=== PATIENT | male | born 1990 | race Caucasian/White ===

== ENCOUNTER 2020-05-23 15:11 | Inpatient (IN) | payer OTHER ==
[~2020-05-23] VITALS: Ht 198.1 cm; Wt 168.3 kg
[~2020-05-23 15:11] MED LIST: ABILIFY10 MG PO; FLEXERIL PO; NORCO 5-325 TA1 EACH PO; Penicillin; TRILEPTAL150 MG PO; ULTRAM 50MG TAB50 MG PO; ZANTAC150 M2 PO
[2020-05-23 15:19] VITALS: BP 161/118
[2020-05-23 15:58] LABS: ABSOLUTE BASOPHILS 0.1 thou/uL (0.0-0.2); ABSOLUTE EOSINOPHILS 0.2 thou/uL (0.0-0.7); ABSOLUTE LYMPHOCYTES 3.8 thou/uL (0.8-5.3); ABSOLUTE MONOCYTES 1.5 thou/uL (0.0-1.2); ABSOLUTE NEUTROPHILS 12.5 thou/uL (1.6-8.1); BASOPHILS 0.6 %; EOSINOPHILS 0.9 %; HEMATOCRIT 45.6 % (42.0-52.0); HEMOGLOBIN 15.1 gm/dL (14.0-18.0); MCH 30.6 pg (26.0-34.0); MCV 92.5 fL (80.0-100.0); MONOCYTES 8.3 %; MPV 8.3 fl. (7.2-11.1); NUCLEATED RBCS 0 /100WBC; PLATELET COUNT* 323 thou/uL (150-400); POLYS 69.2 %; RBC 4.93 mil/uL (4.50-6.00); RDW-CV 14.9 % (10.5-14.5)
[2020-05-23 16:07] LABS: CALCIUM 8.6 mg/dL (8.5-10.1); CREATININE 0.9 mg/dL (0.6-1.3); POTASSIUM 3.9 mmol/L (3.5-5.1)
[2020-05-23 16:12] LABS: ALBUMIN 3.1 g/dL (3.4-5.0); TOTAL BILIRUBIN 0.6 mg/dL (<0.1-1.0); TOTAL PROTEIN 7.6 g/dL (6.4-8.2)
[2020-05-23 17:39] LABS: APTT 28.3 Seconds (25.0-31.3); PROTIME 10.6 Seconds (9.20-11.50)
[2020-05-23 21:16] VITALS: BP 132/65
[2020-05-23 22:09] VITALS: BP 136/89
[2020-05-23 23:00] VITALS: BP 137/84
[2020-05-23 23:13] LABS: URINE BILIRUBIN NEGATIVE (Negative); URINE BLOOD NEGATIVE (Negative); URINE CLARITY CLEAR; URINE COLOR YELLOW; URINE GLUCOSE-RANDOM NEGATIVE (Negative); URINE KETONES NEGATIVE (Negative); URINE LEUKOCYTES-REFLEX NEGATIVE (Negative); URINE NITRITE-REFLEX NEGATIVE (Negative); URINE PROTEIN NEGATIVE (Negative); URINE SPECIFIC GRAVITY >= 1.030 (1.005-1.030)
[2020-05-24 04:00] VITALS: BP 126/73
[2020-05-24 08:00] VITALS: BP 136/78
[2020-05-24 12:00] VITALS: BP 136/85
[2020-05-24 12:43] VITALS: BP 136/78
[2020-05-24 20:00] VITALS: BP 131/68
[2020-05-25] VITALS: BP 1501/94
[2020-05-25 04:00] VITALS: BP 143/81
[2020-05-25 05:03] LABS: HEMATOCRIT 41.7 % (42.0-52.0); HEMOGLOBIN 13.7 gm/dL (14.0-18.0); MCH 30.5 pg (26.0-34.0); MCHC 32.9 g/dL (28.0-37.0); MCV 92.7 fL (80.0-100.0); MPV 9.2 fl. (7.2-11.1); NUCLEATED RBCS 0 /100WBC; PLATELET COUNT* 293 thou/uL (150-400); RDW-CV 14.9 % (10.5-14.5); WBC 20.2 thou/uL (4.0-11.0)
[2020-05-25 05:17] LABS: CALCIUM 8.4 mg/dL (8.5-10.1); CREATININE 0.7 mg/dL (0.6-1.3); POTASSIUM 3.7 mmol/L (3.5-5.1)
[2020-05-25 08:47] VITALS: BP 145/92
[2020-05-25 09:06] LABS: ABSOLUTE EOSINOPHILS 0.4 thou/uL (0.0-0.7); ABSOLUTE LYMPHOCYTES 3.2 thou/uL (0.8-5.3); ABSOLUTE MONOCYTES 1.2 thou/uL (0.0-1.2); ABSOLUTE NEUTROPHILS 15.4 thou/uL (1.6-8.1); PLATELET ESTIMATE ADEQUATE
[2020-05-25 09:07] LABS: HYPOCHROMASIA Occasional
[2020-05-25 12:00] VITALS: BP 135/84
[2020-05-25] MEDS ORDERED: ELIQUIS5 MG PO (13:40)
[2020-05-25 14:10] VITALS: BP 135/84
[2020-05-25 14:43] VITALS: BP 135/84
== END 2020-05-25 14:40 | disposition home or self-care (01) | DRG 253 ==
LOC: M.ERS 15:11 → M.TBA-ER 17:16 → M.2W 22:45
PROVIDERS: Emergency Medicine Emergency Medical Services; Physician Assistant; Radiology Diagnostic Radiology; ADMIT Internal Medicine; ATTEND Internal Medicine
DX: I82.622 Acute embolism and thrombosis of deep veins of left upper extremity (principal); L03.90 Cellulitis, unspecified; F90.9 Attention-deficit hyperactivity disorder, unspecified type; F31.9 Bipolar disorder, unspecified; D72.829 Elevated white blood cell count, unspecified; F91.3 Oppositional defiant disorder; F17.200 Nicotine dependence, unspecified, uncomplicated; G54.0 Brachial plexus disorders; Z20.822 Contact with and (suspected) exposure to COVID-19; Z90.49 Acquired absence of other specified parts of digestive tract; Z79.899 Other long term (current) drug therapy; Z23 Encounter for immunization

== ENCOUNTER 2020-05-28 10:19 | Inpatient (IN) | payer OTHER ==
[~2020-05-28] VITALS: Ht 198.1 cm; Wt 76.8 kg
[2020-05-28] VITALS (8 sets, daily range): BP systolic 118–170; BP diastolic 71–103
[~2020-05-28 10:19] MED LIST changes: +ELIQUIS5 MG PO
[2020-05-28 10:55] LABS: ABSOLUTE BASOPHILS 0.1 thou/uL (0.0-0.2); ABSOLUTE EOSINOPHILS 0.4 thou/uL (0.0-0.7); ABSOLUTE MONOCYTES 1.3 thou/uL (0.0-1.2); ABSOLUTE NEUTROPHILS 11.8 thou/uL (1.6-8.1); BASOPHILS 0.6 %; EOSINOPHILS 2.6 %; HEMATOCRIT 45.5 % (42.0-52.0); HEMOGLOBIN 14.9 gm/dL (14.0-18.0); MCH 30.4 pg (26.0-34.0); MCHC 32.9 g/dL (28.0-37.0); MCV 92.6 fL (80.0-100.0); MONOCYTES 7.7 %; MPV 8.5 fl. (7.2-11.1); NUCLEATED RBCS 0 /100WBC; PLATELET COUNT* 385 thou/uL (150-400); POLYS 71.1 %; RBC 4.91 mil/uL (4.50-6.00); RDW-CV 14.6 % (10.5-14.5); WBC 16.5 thou/uL (4.0-11.0)
[2020-05-28 10:59] LABS: CALCIUM 8.9 mg/dL (8.5-10.1); CREATININE 0.8 mg/dL (0.6-1.3); POTASSIUM 3.7 mmol/L (3.5-5.1)
[2020-05-28 11:04] LABS: TOTAL BILIRUBIN 0.5 mg/dL (<0.1-1.0); TOTAL PROTEIN 8.1 g/dL (6.4-8.2)
[2020-05-28 11:08] LABS: PROTIME 10.5 Seconds (9.20-11.50)
[2020-05-28 19:36] LABS: HEMATOCRIT 44.7 % (42.0-52.0); HEMOGLOBIN 14.5 gm/dL (14.0-18.0)
[2020-05-28 19:46] LABS: APTT 28.3 Seconds (25.0-31.3); PROTIME 10.7 Seconds (9.20-11.50)
[2020-05-29] VITALS (20 sets, daily range): BP systolic 129–172; BP diastolic 72–105
[2020-05-29 04:41] LABS: ABSOLUTE BASOPHILS 0.2 thou/uL (0.0-0.2); ABSOLUTE EOSINOPHILS 0.6 thou/uL (0.0-0.7); ABSOLUTE LYMPHOCYTES 4.8 thou/uL (0.8-5.3); ABSOLUTE MONOCYTES 1.6 thou/uL (0.0-1.2); BASOPHILS 0.9 %; EOSINOPHILS 3.1 %; HEMATOCRIT 42.1 % (42.0-52.0); HEMOGLOBIN 13.7 gm/dL (14.0-18.0); LYMPHOCYTES 26.5 %; MCH 30.3 pg (26.0-34.0); MCHC 32.6 g/dL (28.0-37.0); MCV 93.1 fL (80.0-100.0); MONOCYTES 8.7 %; MPV 8.4 fl. (7.2-11.1); NUCLEATED RBCS 0 /100WBC; PLATELET COUNT* 338 thou/uL (150-400); POLYS 60.8 %; RBC 4.53 mil/uL (4.50-6.00); RDW-CV 14.7 % (10.5-14.5); WBC 18.1 thou/uL (4.0-11.0)
[2020-05-29 04:50] LABS: CALCIUM 8.5 mg/dL (8.5-10.1); CREATININE 0.7 mg/dL (0.6-1.3)
[2020-05-29 19:11] LABS: HEMATOCRIT 45.5 % (42.0-52.0); HEMOGLOBIN 14.8 gm/dL (14.0-18.0)
[2020-05-29 19:26] LABS: APTT 34.3 Seconds (25.0-31.3); PROTIME 11.1 Seconds (9.20-11.50)
[2020-05-30] VITALS (12 sets, daily range): BP systolic 120–143; BP diastolic 58–81
[2020-05-30 03:29] LABS: HEMOGLOBIN 14.1 gm/dL (14.0-18.0); MCH 30.5 pg (26.0-34.0); MCHC 32.8 g/dL (28.0-37.0); RBC 4.62 mil/uL (4.50-6.00); RDW-CV 14.4 % (10.5-14.5); WBC 18.7 thou/uL (4.0-11.0)
[2020-05-30 03:55] LABS: ALBUMIN 2.6 g/dL (3.4-5.0); CALCIUM 8.6 mg/dL (8.5-10.1); CREATININE 0.7 mg/dL (0.6-1.3); MAGNESIUM 2.1 mg/dL (1.8-2.4); POTASSIUM 4.1 mmol/L (3.5-5.1); TOTAL BILIRUBIN 1.1 mg/dL (<0.1-1.0); TOTAL PROTEIN 7.2 g/dL (6.4-8.2)
[2020-05-30 19:33] LABS: HEMATOCRIT 43.2 % (42.0-52.0); HEMOGLOBIN 14.1 gm/dL (14.0-18.0)
[2020-05-30 19:47] LABS: APTT 31.9 Seconds (25.0-31.3); INR 1.1; PROTIME 11.2 Seconds (9.20-11.50)
[2020-05-31] VITALS: BP 133/80
[2020-05-31 04:00] VITALS: BP 131/68
[2020-05-31 04:37] LABS: HEMATOCRIT 42.3 % (42.0-52.0); HEMOGLOBIN 13.5 gm/dL (14.0-18.0)
[2020-05-31 05:00] LABS: APTT 30.8 Seconds (25.0-31.3); INR 1.1; PROTIME 11.4 Seconds (9.20-11.50)
[2020-05-31] MEDS ORDERED: HYDROCODON-ACE1 EAC7 PO (07:43)
[2020-05-31] MEDS ORDERED: LITE COAT ASPI325 MG PO (07:44)
[2020-05-31 08:00] VITALS: BP 154/60
[2020-05-31 12:52] VITALS: BP 154/60
--- NOTE | 2020-05-31 16:36 | CON ---
[address] [address] CONSULTATION Name: SIDRA BERNABE Rainer Room: [address] IN M.R.#: [id number] Admission: 05/28/20 Attend Phys: Jone Mejía MD Discharge: 05/31/20 Date of : 89 Report #: [id number] THIS REPORT FOR: cc: FAM - No family physician/PCP FAM - No family physician/PCP ~ Bruce Pineda MD DATE OF SERVICE: 05/29/2020 HISTORY OF PRESENT ILLNESS: We were asked to see the patient for left axillary vein thrombosis. The patient has a history of new onset left axillary vein thrombosis approximately 1 week ago. This was treated with thrombolysis in Interventional Radiology Department. The patient was started on Eliquis and discharged and had a recrudescence of this and was admitted yesterday when the initial repeat thrombolysis was performed and a final thrombolysis was done today. The patient was on IV heparin overnight with TPA running to dissolve the clot and today had left upper extremity venogram with balloon dilatation of axillary vein. The patient states that he has never had this problem before acute onset on 05/24. PAST HISTORY: Significant for ITP (idiopathic thrombocytopenic purpura) and the patient had a splenectomy in 2009. The patient is not taking any medication currently. ALLERGIES: The patient has a recorded allergy to RHO(D) IMMUNE GLOBULIN dating from 05/04/2009. MEDICATIONS: The patient was on Eliquis at home, apixaban 5 mg. The patient from the chart as a history of bipolar disorder, but the patient denied taking any medication for any problems when I spoke with him. 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 Social history is significant for tobacco use. The patient denies other drug use. He does use alcohol. REVIEW OF SYSTEMS: I agree with the review of systems as dictated by Dr. Mejía. In addition, I queried the patient about unusual activity and there does not seem to be any. PHYSICAL EXAMINATION: GENERAL: The patient is in bed, somewhat sleepy after [place] [address] CONSULTATION Name: SIDRA BERNABE Rainer Room: [address] IN [facility]#: [id number] Admission: 05/28/20 Attend Phys: Jone Mejía MD Discharge: 05/31/20 Date of : 89 Report #: [id number] VITAL SIGNS: Satisfactory. Blood pressure 147/80, O2 sat 92 on room air, pulse rate 73. HEENT: Normocephalic. Pupils are round and equal. No conjunctival edema, no scleral icterus, no arcus senilis. NECK: No mass, no bruit. CHEST: Clear to auscultation. HEART: Rhythm regular. ABDOMEN: The patient has somewhat overweight with mild centripetal obesity. EXTREMITIES: The left arm is on a pillow. It is swollen relative to the right and somewhat discolored with reddish purplish coloration. Radial pulses are palpable in both arms, but somewhat obscured on the left due to edema. Mild venous pattern on the left upper extremity, but with the obesity, not clearly first rib collaterals. Lower extremities, no edema. NEUROLOGIC: No motor or sensory dysfunction. PSYCHIATRIC: Shows insight into problem, answers questions appropriately and is oriented x 3, but somewhat sleepy as mentioned. ASSESSMENT AND PLAN: The patient has left axillary vein thrombosis, Paget-von Schroetter syndrome. We note that initial treatment was with thrombolytic therapy and Interventional Radiology and the patient was sent home on Eliquis. I am not familiar with Eliquis being satisfactory treatment for this and I am more familiar with heparin translating over to Coumadin, but the physicians who recommended the Eliquis may have more information on that than I. In any event, this has treated problem currently and my recommendation would be intravenous heparin or subcutaneous Lovenox at a therapeutic level with transition over to Coumadin. We do note that the patient had an elevated fibrinogen level prior on 05/28 and it is not clear if this is in spite of treatment or related to an underlying hypercoagulable disorder. It would also be reasonable to have hematology when as this patient does have ITP and get their opinion. One would hope that this all could be done on an outpatient basis with the patient on satisfactory warfarin treatment (with a goal INR in the 2.5 range). Ultimately, treatment could involve surgery. There were multiple approaches for this problem with supraclavicular, infraclavicular and transaxillary approaches to the first rib and thoracic outlet. This was a small part of my practice, but I have done this sort of surgery in the past. I have advised the patient that there are people who super-specialized in this, but I am not familiar with any of them in this city and we are happy to point the patient in that direction if he wishes. [facility] [address] [place] [address] CONSULTATION Name: SIDRA BERNABE Room: [address] M.R.#: [id number] Admission: 05/28/20 Attend Phys: Jone Mejía MD Discharge: 05/31/20 Date of : 89 Report #: [id number] As mentioned, I would hope that we could translate this patient to oral anticoagulation ultimately and follow him as an outpatient. Thank you for the consult. <ELECTRONICALLY SIGNED> By: Bruce Pineda MD 05/31/20 1636 [id number] 1931Jokristina Pineda MD /nt
== END 2020-05-31 13:15 | disposition home or self-care (01) | DRG 271 ==
LOC: M.ERS 10:19 → M.TBA-ER 13:22 → M.ICU 14:55 → M.2W 05-30 11:20
PROVIDERS: Internal Medicine; Physician Assistant; Radiology Diagnostic Radiology; ADMIT Internal Medicine; ATTEND Internal Medicine
PROC: 05CA3ZZ Extirpation of Matter from Left Brachial Vein, Percutaneous Approach (ICD-10-PCS; principal; 2020-05-28)
PROC: 3E03317 Introduction of Other Thrombolytic into Peripheral Vein, Percutaneous Approach (ICD-10-PCS; principal; 2020-05-28)
PROC: 05C63ZZ Extirpation of Matter from Left Subclavian Vein, Percutaneous Approach (ICD-10-PCS; principal; 2020-05-28)
PROC: B51N1ZZ Fluoroscopy of Left Upper Extremity Veins using Low Osmolar Contrast (ICD-10-PCS; principal; 2020-05-28)
PROC: 05C83ZZ Extirpation of Matter from Left Axillary Vein, Percutaneous Approach (ICD-10-PCS; principal; 2020-05-28)
PROC: B5181ZA Fluoroscopy of Superior Vena Cava using Low Osmolar Contrast, Guidance (ICD-10-PCS; principal; 2020-05-28)
DX: I82.A12 Acute embolism and thrombosis of left axillary vein (principal); E44.1 Mild protein-calorie malnutrition; Z68.1 Body mass index [BMI] 19.9 or less, adult; F31.9 Bipolar disorder, unspecified; F90.9 Attention-deficit hyperactivity disorder, unspecified type; F91.3 Oppositional defiant disorder; I82.890 Acute embolism and thrombosis of other specified veins; G54.0 Brachial plexus disorders; F17.210 Nicotine dependence, cigarettes, uncomplicated; E66.9 Obesity, unspecified; Z20.822 Contact with and (suspected) exposure to COVID-19; Z90.81 Acquired absence of spleen; Z90.49 Acquired absence of other specified parts of digestive tract; Z79.899 Other long term (current) drug therapy; Z88.8 Allergy status to other drugs, medicaments and biological substances

== ENCOUNTER 2020-07-30 20:55 | Emergency (ER) | payer OTHER ==
[~2020-07-30] VITALS: Ht 193 cm; Wt 136.1 kg
[~2020-07-30 20:55] MED LIST changes: +HYDROCODON-ACE1 EAC7 PO; +LITE COAT ASPI325 MG PO
[2020-07-30] MEDS ORDERED: HYDROCODON-ACE1 EAC8 PO (22:20)
[2020-07-30 22:43] VITALS: BP 125/64
== END 2020-07-30 22:44 | disposition home or self-care (01) ==
LOC: M.ERS 20:55
DX: S82.432A Displaced oblique fracture of shaft of left fibula, initial encounter for closed fracture (principal); F17.210 Nicotine dependence, cigarettes, uncomplicated; Z90.49 Acquired absence of other specified parts of digestive tract; Z88.8 Allergy status to other drugs, medicaments and biological substances; X50.9XXA Other and unspecified overexertion or strenuous movements or postures, initial encounter; Y93.89 Activity, other specified; Y92.89 Other specified places as the place of occurrence of the external cause; Y99.8 Other external cause status

== ENCOUNTER 2020-12-31 07:10 | Emergency (ER) | payer OTHER ==
[~2020-12-31] VITALS: Ht 200.7 cm; Wt 170.1 kg
[~2020-12-31 07:10] MED LIST changes: +HYDROCODON-ACE1 EAC8 PO
[2020-12-31 08:19] LABS: CALCIUM 8.4 mg/dL (8.5-10.1); MAGNESIUM 1.7 mg/dL (1.8-2.4); POTASSIUM 3.6 mmol/L (3.5-5.1)
[2020-12-31] MEDS ORDERED: ZOFRAN ODT4 MG DISSOLVE (08:24)
[2020-12-31 08:32] VITALS: BP 134/72
== END 2020-12-31 08:32 | disposition home or self-care (01) ==
LOC: M.ERS 07:10
PROVIDERS: Emergency Medicine Emergency Medical Services
DX: U07.1 COVID-19 (principal); R19.7 Diarrhea, unspecified; R11.10 Vomiting, unspecified; F31.9 Bipolar disorder, unspecified; F90.9 Attention-deficit hyperactivity disorder, unspecified type; F17.210 Nicotine dependence, cigarettes, uncomplicated; Z90.89 Acquired absence of other organs; Z90.49 Acquired absence of other specified parts of digestive tract; Z88.8 Allergy status to other drugs, medicaments and biological substances